=== PATIENT | female | born 1965 | race Caucasian/White ===

== ENCOUNTER → 2024-11-17 | Outpatient (REF) | payer BC | LOC: M LAB REF 16:46 | PROVIDERS: ATTEND Physician Assistant | DX: N76.0 Acute vaginitis (principal) ==

== ENCOUNTER → 2025-04-05 | Outpatient (REF) | payer BC | LOC: M LAB REF 16:49 | PROVIDERS: ATTEND Nurse Practitioner Adult Health | DX: N89.8 Other specified noninflammatory disorders of vagina (principal) ==